=== PATIENT | male | born 1980 | race Caucasian/White ===

== ENCOUNTER 2019-09-14 16:38 | Emergency (ER) | payer OTHER ==
--- NOTE | 2019-09-14 17:42 | EDM.PDOC ---
ED HPI GENERAL MEDICAL PROBLEM - General Chief Complaint: Respiratory Problem Stated Complaint: HEAD COLD/COUGH Time Seen by Provider: 09/14/19 16:56 Source of Information: Reports: Patient History Limitations: Reports: No Limitations - History of Present Illness INITIAL COMMENTS - FREE TEXT/NARRATIVE: Patient is a 39-year-old male who presents with complaints of cough and congestion for the last 2 days. Patient states that his roommate tested positive for influenza and that his work required him to come be evaluated. He has not had any shortness of breath, fever or chills. Denies any nausea, vomiting, or diarrhea. - Related Data Allergies Allergy/AdvReac Type Severity Reaction Status Date / Time No Known Allergies Allergy Verified 09/14/19 16:48 Home Meds: Home Meds . [No Known Home Meds] 09/14/19 [History] Past Medical History HEENT History: Reports: None Cardiovascular History: Reports: None Respiratory History: Reports: None Gastrointestinal History: Reports: None Genitourinary History: Reports: None Musculoskeletal History: Reports: None Psychiatric History: Reports: None Endocrine/Metabolic History: Reports: None Hematologic History: Reports: None Immunologic History: Reports: None Oncologic (Cancer) History: Reports: None Dermatologic History: Reports: None - Infectious Disease History Infectious Disease History: Reports: None - Past Surgical History Neurological Surgical History: Reports: Lumbar Spine, Sacral Spine Social & Family History - Tobacco Use Smoking Status *Q: Current Some Day Smoker Years of Tobacco use: 10 Packs/Tins Daily: 0.1 - Caffeine Use Caffeine Use: Reports: Coffee, Energy Drinks, Soda - Recreational Drug Use Recreational Drug Use: No ED ROS GENERAL - Review of Systems Review Of Systems: Comprehensive ROS is negative, except as noted in HPI. ED EXAM, GENERAL - Physical Exam Exam: See Below Exam Limited By: No Limitations General Appearance: Alert, WD/WN, No Apparent Distress Ears: Normal External Exam, Normal Canal, Hearing Grossly Normal, Normal TMs Respiratory/Chest: No Respiratory Distress, Lungs Clear, Normal Breath Sounds, No Accessory Muscle Use, Chest Non-Tender Cardiovascular: Normal Peripheral Pulses, Regular Rate, Rhythm, No Edema, No Gallop, No JVD, No Murmur, No Rub Neurological: Alert, Oriented, CN II-XII Intact, Normal Cognition, Normal Gait, Normal Reflexes, No Motor/Sensory Deficits Psychiatric: Normal Affect, Normal Mood Skin Exam: Warm, Dry, Intact, Normal Color, No Rash Course - Vital Signs Last Recorded V/S: Last Vital Signs Temp 98.1 F 09/14/19 18:05 Pulse 86 09/14/19 18:05 Resp 18 09/14/19 18:05 BP 129/84 09/14/19 18:05 Pulse Ox 96 09/14/19 18:05 - Re-Assessments/Exams Free Text/Narrative Re-Assessment/Exam: Patient's influenza screen was negative. His lung sounds were clear. Vital signs are stable. Discussed that since his symptoms are mild, a Covid19 screen would not be appropriate at this time. The recommendation of the health department is to stay home until symptoms have been resolved for 3 days, at least 7 days from the onset of symptoms. Discharge instructions as documented. Departure - Departure Time of Disposition: 17:38 Disposition: Home, Self-Care 01 Condition: Fair Clinical Impression: Viral respiratory illness - Discharge Information *PRESCRIPTION DRUG MONITORING PROGRAM REVIEWED*: No *COPY OF PRESCRIPTION DRUG MONITORING REPORT IN PATIENT JORDON: No Instructions: Viral Respiratory Infection, [id number] Referrals: PCP,None [Primary Care Provider] - Forms: ED Department Discharge, ED Return to Work/School Form Additional Instructions: You were seen in the emergency department today for cough and congestion for the last 2 days. An influenza screen was found to be negative. You did not have a fever in the ER. As we discussed, the testing for the coronavirus is in limited quantity and your symptoms are very mild. Department of Health recommendation is that you stay home and do not return to work until you have either been fever free without medications and you have improvement of your respiratory symptoms for 3 days. It also must be at least 7 days since the onset of symptoms. Based on this, the earliest that you can return back to work would be September 18; however, it may be later than that depending on how long it takes for your cough to resolve. Recommend that you rest and ensure adequate fluid intake. You may use an [id number] cough medicine with DM as needed for cough. If you should experience any worsening symptoms of concern , please do not hesitate to return to the emergency department. Sepsis Event Note - Evaluation Sepsis Screening Result: No Definite Risk - Focused Exam Vital Signs: Vital Signs Temp Pulse Resp BP Pulse Ox 09/14/19 18:05 98.1 F 86 18 129/84 96 09/14/19 16:45 97.1 F 90 16 156/101 H 99 Date Exam was Performed: 09/14/19 Time Exam was Performed: 21:41
== END 2019-09-14 18:05 | disposition home or self-care (01) ==
LOC: JD.ED 16:38
DX: B34.9 Viral infection, unspecified (principal); F17.210 Nicotine dependence, cigarettes, uncomplicated
CPT/HCPCS: 87804; 99282; 99283